=== PATIENT | male | born 1965 | race Caucasian/White ===

== ENCOUNTER 2021-08-11 22:49 | Emergency (ER) | payer MEDICARE, OTHER, SELFPAY ==
--- NOTE | 2021-08-11 22:57 | ECG_ITS ---
APPROVED REPORT Exam: Resting ECG HR:68 bpm ECG Measurements Heart Rate 68 AXES DE 165 P 65 QRSd 92 QRS 81 QT 374 T 80 QTc 390 Conclusion SINUS RHYTHM NORMAL ECG UNCONFIRMED REPORT Electronically signed by : Ronnie Meeks MD 08/12/2021 19:18:57
[2021-08-11 22:58] VITALS: BP 142/99; PULSE 70; RESP 22; TEMP 37.1; O2SAT 100; BMI 19.2
[2021-08-11 23:20] LABS: Basophils # 0.1 K/mm3 (0-0.2); Basophils % 0.6 % (0.1-2.0); Eosinophils # 0.3 K/mm3 (0.0-0.4); Eosinophils % 3.3 % (0.1-12.0); Hematocrit 48.3 % (42.0-52.0); Hemoglobin 16.2 g/dL (14.1-18.0); Lymphocytes # 2.3 K/mm3 (0.7-4.5); Lymphocytes % 26.5 % (10-50); Mean Corpuscular HGB Conc 33.6 g/dL (31.8-35.4); Mean Corpuscular Hemoglobin 31.4 pg (27.0-31.2); Mean Corpuscular Volume 93.7 fl (80-94); Mean Platelet Volume 7.6 fl (7.4-10.4); Monocytes # 0.7 K/mm3 (0.1-1.0); Monocytes % 8.6 % (1.7-9.3); Neutrophils # 5.2 K/mm3 (1.8-7.8); Platelet Count 246 K/mm3 (142-424); Red Blood Count 5.15 M/mm3 (4.60-6.20); Red Cell Distribution Width 12.8 % (11.5-17.5); White Blood Count 8.6 K/mm3 (4.8-10.8)
--- NOTE | 2021-08-11 23:21 | [facility].EDSOB ---
ED Disposition Clinical Impression: Acute exacerbation of chronic obstructive airways disease Disposition: Home, Self-Care Condition on Discharge: Good Instructions: DI for Chronic Obstructive Pulmonary Disease Additional Instructions: fluids and use meds and see pcp for follow up Prescriptions: levoFLOXacin [Levaquin 500mg tab] 500 mg PO DAILY #7 tab Transmission Status: Pending to [email or web address] # predniSONE [Prednisone 20mg Tab] 20 mg PO BID #10 tab Transmission Status: Pending to [email or web address] # - Critical Care Critical Care Time: No Attestation: On , the high probability of a clinically significant, sudden or life threatening deterioration of the following system(s) required my full and direct attention, intervention and personal management. The time I documented below is in addition to time spent performing reported procedures but includes the following listed in this critical care notation. Medical Decision Making - Medical Records Medical records reviewed: Yes: I reviewed the patient's medical records. - Sundar Inquiry Pt receiving controlled substance: No Vital Signs: 08/11/21 22:58 Temperature 98.7 F Temperature Source Oral Pulse Rate [Right Brachial] 70 Respiratory Rate 22 Blood Pressure [Right Arm] 142/99 H Blood Pressure Mean [Right Arm] 113 Blood Pressure Source [Right Arm] Automatic Cuff Blood Pressure Position [Right Arm] Sitting 02 Sat by Pulse Oximetry 100 Oxygen Delivery Method Room Air - Lab Data Lab results reviewed: Yes: I reviewed the patient's lab results. Lab Results 08/11/21 23:04: WBC 8.6, RBC 5.15, Hgb 16.2, Hct 48.3, MCV 93.7, MCH 31.4 H, MCHC 33.6, RDW 12.8, Plt Count 246, MPV 7.6, Neut % (Auto) 61.0, Lymph % (Auto) 26.5, [place] % (Auto) 8.6, Eos % (Auto) 3.3, Baso % (Auto) 0.6, Neut # (Auto) 5.2, Lymph # (Auto) 2.3, [place] # (Auto) 0.7, Eos # (Auto) 0.3, Baso # (Auto) 0.1 Result diagrams: 08/11/21 23:04 Orders (Tests/Meds): ED MEDICATIONS Generic Name Dose Route Start Last Admin Trade Name Freq PRN Reason Stop Dose Admin Albuterol Sulfate 2 puffs 08/12/21 02:00 Albuterol-Hfa 90mcg/Puff Inhaler 8gm IH 09/11/21 01:59 Q4RT KIKO Sodium Chloride 1,000 mls @ 999 mls/hr 08/11/21 23:15 08/11/21 23:26 Sod Chlor 0.9% 1000ml Bag IV 08/12/21 00:15 999 mls/hr .Q1H1M KIKO Administration Discontinued Medications Generic Name Dose Route Start Last Admin Trade Name Freq PRN Reason Stop Dose Admin Albuterol/Ipratropium 3 ml 08/11/21 23:25 Ipratropium/Albuterol 3 Ml Neb IH 08/11/21 23:26 ONCE ONE Methylprednisolone Sodium Succinate 125 mg 08/11/21 23:13 08/11/21 23:26 Methylprednisolone Sod Succ 125mg Vial IV 08/11/21 23:14 125 mg ONCE ONE Administration Miscellaneous 1 unit 08/11/21 23:25 Aerochamber/Optihaler MC 08/11/21 23:26 ONCE ONE ORDERS Category Date Time Status Chest XR 2 view (NOT portable) [XR chest 2V] Stat Exams 08/11/21 23:24 Taken BNP [Brain Natriuretic Peptide] Stat Lab 08/11/21 23:04 Received C-Reactive Protein Stat Lab 08/11/21 23:04 Received Complete Blood Count Auto Diff Stat Lab 08/11/21 23:04 Results Comprehensive Metabolic Panel Stat Lab 08/11/21 23:04 Received Erythrocyte Sedimentation Rate Stat Lab 08/11/21 23:04 Results Procalcitonin Stat Lab 08/11/21 23:04 Received Troponin I Q3H Lab 08/12/21 02:15 Ordered Troponin I Q3H Lab 08/12/21 05:15 Ordered Troponin I Stat Lab 08/11/21 23:04 Received - Radiology Data #1 Image(s): Chest Image Reviewed: Yes I have reviewed radiologist's interpretation Preliminary Findings: Abnormal - ECG Data Tracing #1 Normal Sinus Rhythm: Yes Ischemic changes: non-specific ST-T wave changes - PARVIN Score for Non-Stemi Age of Patient: 50-59 years old Heart Rate: 70-89 bpm Systolic Blood Pressure: 140-159 mmHg Serum Creatinine: 0.80-1.19 mg/dl CHF [place] Class: I-No CHF Other Risk F
--- NOTE | 2021-08-11 23:24 | XR_ITS ---
PROCEDURE INFORMATION: Exam: XR Chest Exam date and time: 08/11/2021 11:24 PM Age: 56 years old Clinical indication: Shortness of breath; Additional info: SOA TECHNIQUE: Imaging protocol: XR of the chest. Views: 2 views. COMPARISON: No relevant prior studies available. FINDINGS: Lungs: Severe pulmonary emphysema with prominent bullous changes noted within the upper lobes. No consolidation. Pulmonary vascular markings do not appear dilated. Pleural spaces: Unremarkable. No pleural effusion. No pneumothorax. Heart/Mediastinum: Unremarkable. No cardiomegaly. Bones/joints: There is levoconvex proximal thoracic and dextroconvex lower thoracic and upper lumbar scoliosis. Deformity of the posterolateral aspect of the left 4th rib, compatible with an old healed fracture. IMPRESSION: 1. Severe pulmonary emphysema identified. No evidence of pneumothorax. 2. No evidence of acute infiltrate or congestive failure.
[2021-08-11 23:25] LABS: Alanine Aminotransferase 26 U/L (12-78); Albumin Level 4.5 g/dl (3.5-5.0); Albumin/Globulin Ratio 1.6 (1.1-1.8); Alkaline Phosphatase 97 U/L (38-126); Anion Gap 13.1 mEq/L (5-15); Aspartate Amino Transferase 32 U/L (17-59); Bilirubin,Total 0.5 mg/dl (0.2-1.3); Blood Urea Nitrogen 17 mg/dl (9-20); Calcium 8.9 mg/dl (8.4-10.2); Carbon Dioxide 29 mmol/L (22.0-30.0); Chloride 102 mmol/L (98-107); Creatinine Clearance Estimated 75 mL/min (50-200); Estimated Glomerular Filt Rate 87 ml/min (>60); GFR (African American) 105 ML/MIN (>60); Globulin 2.8 g/dL (1.3-3.2); Glucose 86 mg/dl (74-100); Potassium 4.1 mmoL/L (3.5-5.1); Sodium 140 mmol/L (136-145); Total Protein,Serum 7.3 g/dl (6.3-8.2)
[2021-08-11 23:30] LABS: C-Reactive Protein 3.7 mg/L (0-4)
[2021-08-11 23:39] LABS: NT Pro Brain Natriuretic Pep. 34.1 pg/mL (0-125)
[2021-08-11 23:43] LABS: Troponin I < 0.01 ng/ml (0.00-0.034)
[2021-08-11 23:44] LABS: Procalcitonin 0.051 ng/mL (0.0-2.0)
[2021-08-11 23:49] LABS: Erythrocyte Sedimentation Rate 1 mm/hr (0-20)
[2021-08-11 23:57] VITALS: BP 142/71; PULSE 81; RESP 21; TEMP 36.6; O2SAT 98
== END 2021-08-12 | disposition home or self-care (01) ==
PROVIDERS: Emergency Provider Emergency Medicine
DX: J44.1 Chronic obstructive pulmonary disease with (acute) exacerbation (principal)
CPT/HCPCS: 71046; 80053; 83880; 84145; 84484; 85025; 85651; 86140; 93005; 96365; 96375; 99282; 99284